=== PATIENT | female | born 1955 | race Caucasian/White ===

== ENCOUNTER 2024-02-29 19:21 | Emergency (ER) | payer MEDICARE, SELFPAY ==
[2024-02-29 19:26] VITALS: BP 170/95; PULSE 85; RESP 18; TEMP 36.7; O2SAT 99; BMI 37.3
[2024-02-29 20:03] LABS: Appearance Urine Slightly Cloudy (Clear); Bilirubin Urine Negative (Negative); Blood Urine Trace-intact (Negative); Color Urine Yellow (Yellow); Glucose Urine Negative (Negative); Ketones Urine Negative (Negative); Leukocyte Esterase Urine 1+ (Negative); Nitrite Urine Negative (Negative); Protein Urine Negative (Negative); Specific Gravity Urine <= 1.005 (1.000-1.030); pH Urine 5.5 (5.0-8.5)
[2024-02-29 20:19] LABS: Bacteria Urine Moderate; Mucus Urine Few; Squamous Epithelial Cell Urine Moderate (None-Few); WBC Urine 0-2 (0-5)
--- NOTE | 2024-02-29 20:36 | ED.FEMALEGU ---
HPI - Female Genitourinary General Date Seen: 02/29/24 Chief complaint: Urogenital Problems, Female Stated complaint: UTI Time Seen by Provider: 02/29/24 19:37 Source: patient Mode of arrival: ambulatory Limitations: no limitations History of Present Illness HPI Narrative: Patient is a 68-year-old female with no pertinent medical problems presenting to the emergency department for hematuria. Patient states she was treated for a UTI last week and finished the Keflex this past Saturday. She is having no symptoms other than hematuria at that time. States she has had several UTIs in the past and has always had hematuria with it. Was doing well up until today when she had 1 episode of hematuria. She has since had episodes of voiding without any blood seen. Of has noticed some mild itching sensation while voiding this started a few days ago. Denies abdominal pain, fevers, chills, flank pain, weakness, numbness, headache, vision changes, diarrhea, constipation. Also had complete abdominal ultrasound done 2 days ago due to elevated liver enzymes that did not show any concerning findings Related Data Home Medications Medication Instructions Recorded Confirmed No Known Home Medications 02/29/24 02/29/24 Allergies Allergy/AdvReac Type Severity Reaction Status Date / Time No Known Drug Allergies Allergy Verified 02/29/24 19:27 Review of Systems Status of ROS: Reports: 10 or more systems reviewed and unremarkable except as noted in History and below PFSH [facility] Social History Smoking Status: Former smoker How often do you have a drink containing alcohol: 2-4 times a month AUDIT-C Alcohol total score: 2 Non-prescribed substance use: denies use Exam Narrative: Exam Narrative: Const: Well-nourished, Well-developed, in no distress Eyes: PERRL, no conjunctival injection, and symmetrical lids HENT: Atraumatic external nose and ears. Moist mucous membranes. Neck: Symmetric, trachea midline, No thyromegaly. CVS: RRR, No murmurs or gallops. Peripheral pulses 2+ and equal in all extremities RESP: Unlabored respiratory effort. Clear to auscultation bilaterally. GI: Nontender/Nondistended, No rebound or guarding. MSK:Extremities w/o deformity, Normal Active ROM Skin: Warm, Dry. No rashes or lesions. Neuro: Normal Muscle tone, No focal neurological deficits. Psych: Awake, Alert, & Oriented x3. Appropriate mood and affect. Const: Vital Signs, click to edit/add: Vital Signs - 24 hr 02/29/24 19:26 Temperature 98.0 F Pulse Rate [Right Pulse Oximeter] 85 Respiratory Rate 18 Blood Pressure [Ri ght Upper Arm] 170/95 H Pulse Oximetry 99 Oxygen Delivery Me thod Room Air Course Vital Signs Vital signs: Initial Vital Signs Temperature 98.0 F 02/29/24 19:26 Temperature Source Temporal Artery Scan 02/29/24 19:26 Pulse Rate 85 02/29/24 19:26 Respiratory Rate 18 02/29/24 19:26 Blood Pressure 170/95 H 02/29/24 19:26 Blood Pressure Mean 120 H 02/29/24 19:26 Blood Pressure Position Sitting 02/29/24 19:26 Pulse Oximetry 99 02/29/24 19:26 Oxygen Delivery Method Room Air 02/29/24 19:26 Vital Signs Temperature 98.0 F 02/29/24 19:26 Pulse Rate 85 02/29/24 19:26 Respiratory Rate 18 02/29/24 19:26 Blood Pressure 170/95 H 02/29/24 19:26 Pulse Oximetry 99 02/29/24 19:26 Oxygen Delivery Method Room Air 02/29/24 19:26 Temperature 98.0 F 02/29/24 19:26 Pulse Rate 85 02/29/24 19:26 Respiratory Rate 18 02/29/24 19:26 Blood Pressure 170/95 H 02/29/24 19:26 Pulse Oximetry 99 02/29/24 19:26 Oxygen Delivery Method Room Air 02/29/24 19:26 MDM - Female Genitourinary MDM Narrative Medical decision making narrative: Patient is a 68-year-old female presenting for hematuria. Urinalysis was done but was contaminated and thus does not given adequate idea if she still has a UTI. There his blood seen in the urine. I spoke to her about the hematuria workup in explained that typically will do lab work in a CT scan. After long conversation and if this should be done or not considering this is a normal symptoms for her with UTIs in she was just treated for 1 along with a recent abdominal imaging she does not want further workup. We will repeat the urinalysis. Considering her history this does seem reasonable. Repeat urinalysis is clean shows no leukocyte esterase or nitrites. There are now no red blood cells I there is no longer squamous epithelial cells and does not appear to be a UTI. Since the hematuria has now resolved she is otherwise doing well patient will be discharged home. Was informed to have re-evaluation of symptoms returned Lab Data Labs: Lab Results 02/29/24 02/29/24 Range/Units 19:56 20:33 Urine Color Yellow Yellow (Yellow) Urine Appearance Slightly Cloudy A Clear (Clear) Urine pH 5.5 6.0 (5.0-8.5) Ur Specific Elbert <= 1.005 <= 1.005 (1.000-1.030) Urine Protein Negative Negative (Negative) Urine Glucose (UA) Negative Negative (Negative) Urine Ketones Negative Negative (Negative) Urine Blood Trace-intact A Trace-lysed A (Negative) Urine Nitrite Negative Negative (Negative) Urine Bilirubin Negative Negative (Negative) Urine Urobilinogen 1.0 0.2 (0.2-1.0) Ur Leukocyte Esterase 1+ A Negative (Negative) Urine RBC 10-25 A 0-2 (0-2) Urine WBC 0-2 5-10 A (0-5) Ur Squamous Epith Cells Moderate A Few (None-Few) Urine Bacteria Moderate A Few A (None) Urine Mucus Few A (None) Discharge Plan Discharge Clinical Impression: Hematuria Patient Disposition: Home, Self-Care Condition: Stable Instructions: Hematuria (ED) Additional Instructions: Return to emergency department for new or worsening symptoms. Be re-evaluated if you developed hematuria again. Prescriptions: No Action No Known Home Medications Follow Up/Referrals: Provider,Not a Local [Primary Care Provider] - Stand Alone Forms: [employer] Info Instructions
[2024-02-29 20:41] LABS: Appearance Urine Clear (Clear); Bilirubin Urine Negative (Negative); Blood Urine Trace-lysed (Negative); Color Urine Yellow (Yellow); Glucose Urine Negative (Negative); Ketones Urine Negative (Negative); Leukocyte Esterase Urine Negative (Negative); Nitrite Urine Negative (Negative); Protein Urine Negative (Negative); Specific Gravity Urine <= 1.005 (1.000-1.030); Urobilinogen Urine 0.2 (0.2-1.0)
[2024-02-29 20:50] LABS: RBC Urine 0-2 (0-2)
[2024-02-29 20:51] LABS: Bacteria Urine Few; Squamous Epithelial Cell Urine Few (None-Few)
== END 2024-02-29 21:25 | disposition home or self-care (01) ==
PROVIDERS: Emergency Provider Student in an Organized Health Care Education/Training Program
DX: R31.9 Hematuria, unspecified (principal)
CPT/HCPCS: 81001; 87086; 99282; 99283